=== PATIENT | male | born 1990 | race Caucasian/White ===

== ENCOUNTER → 2016-07-22 | Outpatient (CLI) | payer MEDICARE, MEDICAID ==
[~2016-07-22] MED LIST: ALTACE10 MG PO; ARIPIPRAZOLE10 MG PO; DEPAKOTE EXTEN500 MG PO; KLONOPIN1 MG PO; LATUDA60 MG PO; LEVOTHROID (SY50 MCG PO; LIPITOR20 M1 PO; NORVASC10 MG PO; PROTONIX40 MG PO; THERAGRAN-M1 TAB PO; TOPAMAX200 MG PO; VISTARIL25 M1 PO; VISTARIL50 MG PO; ZOLOFT100 MG PO
== END | disposition disaster alternative care site (69) ==
LOC: GAMB 21:46
DX: F32.9 Major depressive disorder, single episode, unspecified (principal); G40.909 Epilepsy, unspecified, not intractable, without status epilepticus; T14.91 Suicide attempt; I10 Essential (primary) hypertension; Z79.899 Other long term (current) drug therapy; Z88.8 Allergy status to other drugs, medicaments and biological substances
CPT/HCPCS: A0425; A0428